=== PATIENT | female | born 1990 | race Caucasian/White ===

== ENCOUNTER → 2017-01-11 | Outpatient (CLI) | payer BC, OTHER ==
[~2017-01-11] MED LIST: ACET1TAB43 PO; FRS325T PO; HYDR-3714 PO; IBUP-1773 PO; PRNMV1T PO
--- NOTE | 2017-01-11 14:21 | Diagnostic Imaging Report ---
INDICATION: anatomical survey. TECHNIQUE: Multiple real-time grayscale images were obtained over the gravid uterus. COMPARISON: None FINDINGS: Single live intrauterine at 23 weeks 0 days by sonographic measurements. Grade 2 placenta is located anteriorly with no placenta previa. heart rate measures 149 beats per minute. The cervix measures 4.7 cm. presentation varied throughout the exam. Good visualization of the kidneys, bladder, stomach, brain, four-chamber heart, three-vessel cord and insertion, spine, and extremities. Biometrical measurements are as follows: Biparietal 5.62 cm, age 23 weeks 2 days. Head circumference 20.71 cm, age 22 weeks 6 days. Abdominal circumference 17.94 cm, age 22 weeks 6 days. Femur length 3.98 cm, age 22 weeks 6 days. Sonographic estimate age: 23 weeks 0 days. Sonographic estimated date of delivery: 05/10/2017. Estimated Weight: 539 gm (+/- 79 gm). LMP percentile: 57%. heart rate: 149 beats per minute. number: 1 of 1. IMPRESSION: 1. Single live intrauterine at 23 weeks 0 days by sonographic measurements. 2. Normal anatomical survey. Dictated by: Dictated on workstation # [id number]
== END ==
LOC: RAD 12:56
PROVIDERS: ATTEND Obstetrics & Gynecology
DX: Z36 Encounter for antenatal screening of mother (principal); Z3A.23 23 weeks gestation of pregnancy
CPT/HCPCS: 76805

== ENCOUNTER 2017-04-16 22:02 | Outpatient (CLI) | payer OTHER ==
[~2017-04-16] VITALS: Ht 152.4 cm; Wt 80.1 kg
[2017-04-16 22:25] VITALS: BP 130/80
[2017-04-16 22:36] LABS: BILIRUBIN,URINE NEGATIVE (NEGATIVE); KETONES,URINE NEGATIVE (NEGATIVE); LEUKOCYTE ESTERASE ,URINE NEGATIVE (NEGATIVE); NITRITE,URINE NEGATIVE (NEGATIVE); PH,URINE 7 (5-9); PROTEIN,URINE NEGATIVE (NEGATIVE); UROBILINOGEN,URINE NORMAL (NORMAL)
[2017-04-16 22:42] LABS: SQUAMOUS EPITHELIAL CELL,UR 0-2 /HPF
[2017-04-16] MEDS ORDERED: NS IV 500 ML 500 ML IV ONE (23:00)
[2017-04-16] MEDS ORDERED: D5 LR IV SOLUTION 1,000 ML IV SCH (23:00)
[2017-04-16 23:26] LABS: BASOPHILS % (AUTO) 0 % (0-10); EOSINOPHILS # (AUTO) 0.1 10^3/uL (0.0-0.3); EOSINOPHILS % (AUTO) 1 % (0-10); LYMPHOCYTES # (AUTO) 1.4 X 10^3 (1.0-4.0); LYMPHOCYTES % (AUTO) 15 % (12-44); MEAN CORPUSCULAR HEMOGLOBIN 30 PG (25-34); MEAN CORPUSCULAR HGB CONC 34 G/DL (32-36); MEAN CORPUSCULAR VOLUME 89 FL (80-99); MEAN PLATELET VOLUME 9.5 FL (7.4-10.4); MONOCYTES # (AUTO) 0.7 X 10^3 (0.0-1.0); MONOCYTES % (AUTO) 8 % (0-12); NEUTROPHILS # (AUTO) 6.9 X 10^3 (1.8-7.8); NEUTROPHILS % (AUTO) 76 % (42-75); PLATELET COUNT 194 10^3/uL (130-400); RED BLOOD COUNT 3.88 10^6/uL (4.35-5.85)
[2017-04-16 23:51] LABS: NEUTROPHILS % (MANUAL) 75 %
[2017-04-16 23:52] LABS: BAND NEUTROPHILS 3 %; LYMPHOCYTES % (MANUAL) 17 %
[2017-04-17] MEDS ORDERED: PREN-142 PO
[2017-04-17] MEDS ORDERED: INFLUENZA TRIvalent 2017-2018 0.5 ML/45 MCG SYR IM ONE (07:30)
--- NOTE | 2017-04-19 12:17 | Physician Query-Final Dx ---
TRINI POOLE 04/19/17 1217: Clinic Account Progress/Dx Physician Query: Please give diagnosis Date of Service Apr 16, 2017 at 22:02 SARAH CARLTON DO 04/20/17 1017: Clinic Account Progress/Dx DIAGNOSIS: Diagnosis 36 week IUP Uterine contractions TRINI POOLE Apr 19, 2017 12:17 SARAH CARLTON DO Apr 20, 2017 10:17
== END 2017-04-17 00:17 | disposition home or self-care (01) ==
LOC: WSo 22:02 → LDRP 22:02 → WSo 04-17 00:17
PROVIDERS: ATTEND Obstetrics & Gynecology
DX: O47.03 False labor before 37 completed weeks of gestation, third trimester (principal); Z3A.36 36 weeks gestation of pregnancy
CPT/HCPCS: 36415; 81000; 85007; 85027; 96360; 99213

== ENCOUNTER → 2018-12-26 | Outpatient (CLI) | payer OTHER ==
[~2018-12-26] MED LIST changes: +PREN-142 PO
--- NOTE | 2018-12-26 14:20 | Diagnostic Imaging Report ---
INDICATION: Size and dates. TECHNIQUE: Multiple Real-time grayscale images were obtained over the gravid uterus. COMPARISON: None. FINDINGS: There is a single living intrauterine in transverse presentation. The placenta is anterior with no previa. There is a normal volume of amniotic fluid. The anatomical survey is unremarkable. This includes a three-vessel cord and a four-chamber heart. The heart rates is 130 BPM and regular. TECHNIQUE: Biometrical measurements are as follows: Biparietal 4.67 cm, age 20 weeks 1 days. Head circumference 17.35 cm, age 20 weeks 0 days. Abdominal circumference 14.91 cm, age 20 weeks 2 days. Femur length 3.17 cm, age 19 weeks 6 days. Sonographic estimate age: 20 weeks 1 days. Sonographic estimated date of delivery: 05/14/2019. Estimated Weight: 327 gm (+/- 48 gm). LMP percentile: 55%. heart rate: 138 beats per minute. number: 1 of 1. IMPRESSION: Single living intrauterine with a sonographically estimated gestational age of 20 weeks 1 day and an estimated date of confinement of May 14, 2019. Dictated by: Dictated on workstation # [id number]
== END ==
LOC: RAD 11:51
PROVIDERS: ATTEND Obstetrics & Gynecology
DX: Z34.92 Encounter for supervision of normal pregnancy, unspecified, second trimester (principal); Z3A.20 20 weeks gestation of pregnancy
CPT/HCPCS: 76805

== ENCOUNTER 2019-05-12 08:00 | Inpatient (IN) | payer OTHER ==
[2019-05-12] VITALS (32 sets, daily range): BP systolic 105–138; BP diastolic 60–93
[~2019-05-12] VITALS: Ht 154.9 cm; Wt 78.8 kg
--- NOTE | 2019-05-12 07:58 | NUR ---
ESTHELA DAVIDSON presented to unit via AMBULATORY FROM HOME, accompanied by , FOR SCHEDULED INDUCTION. ESTHELA DAVIDSON weighed, gowned, voided, and to bed. EFHM and TOCO applied, VS taken. ESTHELA DAVIDSON oriented to bed controls, call light, TV, heat, and A/C controls.
[2019-05-12] MEDS ORDERED: D5 LR IV SOLUTION 1,000 ML IV ONE (08:14)
[2019-05-12] MEDS ORDERED: MINERAL OIL CONCENTRATE 99.9% 15 ML UDC TOP PRN (08:15)
[2019-05-12 08:43] LABS: BASOPHILS % (AUTO) 0 % (0-10); EOSINOPHILS # (AUTO) 0.1 10^3/uL (0.0-0.3); EOSINOPHILS % (AUTO) 1 % (0-10); HEMATOCRIT 36 % (35-52); HEMOGLOBIN 12.2 G/DL (11.5-16.0); LYMPHOCYTES # (AUTO) 2.1 X 10^3 (1.0-4.0); LYMPHOCYTES % (AUTO) 26 % (12-44); MEAN CORPUSCULAR HEMOGLOBIN 30 PG (25-34); MEAN CORPUSCULAR HGB CONC 34 G/DL (32-36); MEAN CORPUSCULAR VOLUME 89 FL (80-99); MONOCYTES # (AUTO) 0.7 X 10^3 (0.0-1.0); MONOCYTES % (AUTO) 9 % (0-12); NEUTROPHILS % (AUTO) 63 % (42-75); PLATELET COUNT 218 10^3/uL (130-400); RED CELL DISTRIBUTION WIDTH 13.1 % (10.0-14.5)
[2019-05-12] MEDS: D5 LR IV SOLUTION 1,000 ML IV SCH ×2 (08:44→13:46)
[2019-05-12] MEDS ORDERED: MISOPROSTOL 100 MCG (CYTOTEC) TAB PO NR ×2 (09:00→17:15)
[2019-05-12] MEDS ORDERED: FLU QUADRIvalent (5+ YOA) 2019-2020 (AFLURIA) 0.5 ML IM ONE (10:15)
--- NOTE | 2019-05-12 11:43 | NUR ---
DR VALDOVINOS CALLED WITH AN UPDATED PT REPORT. UC Q 3-4 MIN. PT STATES PAIN IS TOLERABLE, STILL ABLE TO TALK THROUGH UC, NOT REQUESTING PAIN MEDS. SVE NO CHANGE 3.5-4 CM . NO NEW ORDERS RECEIVED. DR WILL COME SEE PT AFTER CLINIC AND REEVALUATE PLAN OF CARE.
[2019-05-12] MEDS ORDERED: CATHETER FLUSH 10 ML SYR IV SCH ×2 (14:00→22:00)
--- NOTE | 2019-05-12 15:50 | NUR ---
DR VALDOVINOS AT BEDSIDE. RN UPDATES DR VALDOVINOS ON PT REPORT. SVE BY DR VALDOVINOS. WILL CONTINUE WITHOUT PITOCIN SINCE MAKING CERVICAL CHANGE. PT DOES NOT WANT PITOCIN IF AT ALL POSSIBLE DURING LABOR. PT RATES PAIN 7-8 WITH UC. BREATHING WELL. NOT REQUESTING PAIN MEDS, HANDLING LABOR VERY WELL AT THIS POINT. PT BACK ON BIRTHING BALL. WATER REFILLED, JELLO GIVEN, CALL LIGHT WITHIN REACH. REMAINS AT BEDSIDE.
--- NOTE | 2019-05-12 17:05 | NUR ---
THIS RN UPDATES DR VALDOVINOS ON PT PROGRESS. NO CERVICAL CHANGE. 6.[address] VALDOVINOS WANTS TO START PITOCIN. PT STATES IF SHE STARTS PITOCIN, SHE WILL WANT AN EPIDURAL. THEREFORE, DR VALDOVINOS WANTS TO GIVE A SECOND DOSE FO 50MCG CYTOTEC PO INSTEAD. RN WILL PLACE ORDER. PT IS AWARE OF NEW PLAN OF CARE AND IS STILL WANTING TO TRY TO LABOR WITHOUT AND EPIDURAL AT THIS TIME LONG PITOCIN IS NOT STARTED.
--- NOTE | 2019-05-12 18:09 | NUR ---
DR VALDOVINOS GIVEN UPDATED REPORT BY THIS RN. SVE 7.5CM, REOCCURRING VARIABLES WITH EACH UC WHICH DECEL TO 100S REGAURDLESS OF INTERVENTIONS (O2, BOLUS, POSITION CHANGES). UC 2-3.5 MIN APART. PT RATING PAIN 10, BREATHING WELL, HAS GREAT CONTROL. PT ASKING ABOUT PAIN MEDS. ORDER RECEIVED FOR 1MG STADOL.
[2019-05-12] MEDS ORDERED: BUTORPHANOL INJ 2 MG/ML (STADOL) VIAL ONE (18:25)
[2019-05-12] MEDS ORDERED: BUTORPHANOL INJ 2 MG/ML (STADOL) VIAL IV ONE (18:30)
--- NOTE | 2019-05-12 18:34 | NUR ---
DR VALDOVINOS UPDATED ON STATUS. NO CERVICAL CHANGE. FEELING PRESSURE WITH UC.
--- NOTE | 2019-05-12 19:00 | NUR ---
DR VALDOVINOS GIVEN UPDATE PT STATUS. SVE /-1, POSSIBLY ASYNCLITIC. PT FEELING PRESSURE. HAVE BEEN TURNING SIDE TO SIDE WITH PEANUT BALL. DR VALDOVINOS STATES SHE WILL HEAD THAT WAY IN A LITTLE BIT.
--- NOTE | 2019-05-12 19:05 | NUR ---
DR VALDOVINOS CALLED AGAIN BY AT 190 RN TO COME NOW-PT FEELING PUSHY NOW. DR VALDOVINOS STATES SHES ALREADY IN CAR HEADED THIS WAY. THIS RN REMAINS AT BEDSIDE. AT 191 PT STATES SHE CANNOT HOLD BACK FROM PUSHING. EMERGENCY CALL LIGHT PULLED FOR ADDITIONAL ASSISTANCE. RAMONA BURDEN MIKAELA, TAYLOR RN AT BEDSIDE. THIS RN SUPPORTS PERINEUM WHILE PT INVOLUNTARILY PUSHES, AT 191. SPONTANEOUS VAGINAL DELIVERY AT 191. VIABLE FEMALE WAS PLACED ON MOTHERS ABDOMEN AND SHOWS VIGOROUS CRY. DRIED OFF WITH TOWELS, STIMULATED, AND ASSESSED BY KARON SHELDON AT BEDSIDE. CORD CLAMPED AND CUT AT 191. DR VALDOVINOS ARRIVES AT 191. PLACENTA DELIVERED BY DR VALDOVINOS AT 191. RAMONA SHELDON ASSUMES CARE FOR MOTHER.
[2019-05-12] MEDS ORDERED: OXYTOCIN/NORMAL SALINE 500 ML IV ONE (19:10)
[2019-05-12] MEDS ORDERED: OXYTOCIN/NORMAL SALINE 500 ML IV SCH (19:29)
--- NOTE | 2019-05-12 19:29 | OB Labor & Delivery Record ---
Vag Delivery Note Vag Delivery Note Date of Delivery: 05/12/19 Preoperative Diagnosis: Brigida Redd is a 29 /Para 4/ 3, Gestational Age (wks)39with social induction Postoperative Diagnosis: Same Surgeon: HAYDEN VALDOVINOS Anesthesia: none Delivery Type: spontaneous vaginal Findings: Viable female infant, apgars [ending, weight pending Lacerations: none Intact placenta with 3 vessel cord. No nuchal cord, body cord or shoulder dystocia Estimated Blood Loss: 300 ml Complications: None Condition: Stable Description of Procedure: The patient is a 29 year old female who presented for social induction. She was admitted and informed consent was obtained. Her labor course was remarkable for Arom and misoprostol. i was called at 1906 at 8 cm and started for the hospital but was stopped by the train. I arrived at 1712 and she was delivering. the RN delivered in the bed as I arrived in the room. The infant's head was delivered atraumatically. The shoulders and remainder of the infant's body were then delivered without difficulty. Upon delivery, the head was held below the level of the perineum and the mouth and nares were bulb suctioned. The cord was doubly clamped and cut and the was handed off to the pediatric staff. An intact placenta with 3-vessel cord delivered via Flora and there was found to be minimal bleeding.~ Vigorous fundal massage was performed and the fundus was found to be firm. IV oxytocin was given. Examination of the vagina and perineum revealed no laceration. Following the delivery, sponge, instrument and needle counts were correct. Mom and baby were both in stable condition in the labor suite. Vitals - Labs Vital Signs - I&O Vital Signs Date Time Temp Pulse Resp B/P (MAP) Pulse Ox O2 Delivery O2 Flow Rate FiO2 05/12/19 16:30 82 123/82 (96) Room Air 05/12/19 16:15 87 118/73 (88) Room Air 05/12/19 16:00 36.6 87 121/86 (98) Room Air 05/12/19 15:45 Room Air 05/12/19 15:30 96 111/78 (89) Room Air 05/12/19 15:15 93 110/74 (86) Room Air 05/12/19 15:00 36.8 Room Air 05/12/19 14:45 Room Air 05/12/19 14:30 98 16 132/83 (99) Room Air 05/12/19 14:15 Room Air 05/12/19 14:00 36.6 86 126/83 (97) Room Air 05/12/19 13:30 75 105/60 (75) Room Air 05/12/19 13:00 80 124/83 (97) Room Air 05/12/19 12:30 77 16 129/88 (102) Room Air 05/12/19 12:00 88 122/78 (93) Room Air 05/12/19 11:30 Room Air 05/12/19 11:00 36.8 77 117/79 (92) Room Air 05/12/19 10:30 80 16 117/70 (86) Room Air 05/12/19 10:00 36.5 81 120/78 (92) Room Air 05/12/19 08:20 36.5 103 16 97 Room Air 05/12/19 08:20 36.5 103 16 125/82 (96) 97 Room Air Labs Laboratory Tests 05/12/19 08:30: White Blood Count 8.0, Red Blood Count 4.08L, Hemoglobin 12.2, Hematocrit 36, Mean Corpuscular Volume 89, Mean Corpuscular Hemoglobin 30, Mean Corpuscular Hemoglobin Concent 34, Red Cell Distribution Width 13.1, Platelet Count 218, Mean Platelet Volume 10.0, Neutrophils (%) (Auto) 63, Lymphocytes (%) (Auto) 26, Monocytes (%) (Auto) 9, Eosinophils (%) (Auto) 1, Basophils (%) (Auto) 0, Neutrophils # (Auto) 5.0, Lymphocytes # (Auto) 2.1, Monocytes # (Auto) 0.7, Eosinophils # (Auto) 0.1, Basophils # (Auto) 0.0 HAYDEN VALDOVINOS DO May 12, 2019 19:29 POS
[2019-05-12] MEDS ORDERED: MEASLES,MUMPS,RUBELLA 1 EA INJ SQ ONE (19:30)
[2019-05-12] MEDS ORDERED: BENZOCAINE/MENTHOL (DERMOPLAST) 56 ML CAN TP PRN (19:30)
[2019-05-12] MEDS ORDERED: TETANUS,DIPTH,PERTUSS P/F (BOOSTRIX) 0.5 ML VIAL IM ONE (19:30)
[2019-05-12] MEDS ORDERED: WITCH HAZEL(TUCKS) 40 EA JAR TOP PRN (19:30)
--- NOTE | 2019-05-12 19:30 | NUR ---
1930: Pt. cleaned up. Clean chux placed under pt. Fundus massaged. Fundus at umbilicus and firm. Minimal bleeding. No clots noted at this time. 1944: Fundus massaged. Fundus one above umbilicus and firm. Minimal bleeding. No clots. 1999: Fundus massaged. Fundus one above umbilicus and firm. Minimal bleeding. No clots. 2014: Fundus massaged. Fundus one above umbilicus and firm. Minimal bleeding. No clots. 2029: Fundus massaged. Fundus one above umbilicus and firm. Minimal bleeding. No clots. Pt. states that she needs to use the restroom. Nurse out to get pad, gown, and underwear at this time. 2039: Pt. up to bathroom with nurse assist. Voided large amount of clear, straw colored urine. Pericare provided. Pad and underwear put on. Clean gown put on. Pt. then transferred to room via wheelchair. Pt. settled in new room. Fundus continues to be firm. Fundus at umbilicus with minimal bleeding noted.
[2019-05-12] MEDS ORDERED: IBUPROFEN 800 MG (MOTRIN) TAB PO ONE (20:09)
[2019-05-12] MEDS ORDERED: IBUPROFEN 600 MG (MOTRIN) TAB PO ONE (20:10)
[2019-05-12] MEDS: IBUPROFEN 600 MG (MOTRIN) TAB PO SCH (20:13)
[2019-05-12] MEDS: ACETAMINOPHEN 500 MG TAB (TYLENOL) PO SCH (21:41)
[2019-05-12] MEDS: DOCUSATE SODIUM 100 MG (COLACE) CAP PO SCH (21:42)
[2019-05-13 02:09] VITALS: BP 97/76
[2019-05-13] MEDS: IBUPROFEN 600 MG (MOTRIN) TAB PO SCH ×3 (02:09→23:48)
[2019-05-13 06:16] VITALS: BP 126/81
[2019-05-13] MEDS: ACETAMINOPHEN 500 MG TAB (TYLENOL) PO SCH ×3 (06:16→20:53)
[2019-05-13 06:36] LABS: BASOPHILS % (AUTO) 0 % (0-10); EOSINOPHILS # (AUTO) 0.1 10^3/uL (0.0-0.3); EOSINOPHILS % (AUTO) 1 % (0-10); HEMATOCRIT 37 % (35-52); HEMOGLOBIN 12.4 G/DL (11.5-16.0); LYMPHOCYTES # (AUTO) 2.2 X 10^3 (1.0-4.0); LYMPHOCYTES % (AUTO) 18 % (12-44); MEAN CORPUSCULAR HGB CONC 34 G/DL (32-36); MEAN CORPUSCULAR VOLUME 90 FL (80-99); MEAN PLATELET VOLUME 9.9 FL (7.4-10.4); MONOCYTES # (AUTO) 1.2 X 10^3 (0.0-1.0); MONOCYTES % (AUTO) 10 % (0-12); NEUTROPHILS # (AUTO) 8.4 X 10^3 (1.8-7.8); NEUTROPHILS % (AUTO) 71 % (42-75); PLATELET COUNT 207 10^3/uL (130-400); RED CELL DISTRIBUTION WIDTH 13.4 % (10.0-14.5); WHITE BLOOD COUNT 11.8 10^3/uL (4.3-11.0)
[2019-05-13 06:39] LABS: MEAN CORPUSCULAR HEMOGLOBIN 30 PG (25-34)
--- NOTE | 2019-05-13 09:02 | Postpartum Progress Note ---
Note Note Day # 1 s/p Subjective: Patient is without complaints. Ambulating, voiding. Tolerating a regular diet without nausea or vomiting. Normal lochia. Pain is well controlled with oral pain medications. breast feeding. Objective: Laboratory Tests Test 05/13/19 06:00 Range/Units White Blood Count 11.8 H 4.3-11.0 10^3/uL Red Blood Count 4.07 L 4.35-5.85 10^6/uL Hemoglobin 12.4 11.5-16.0 G/DL Hematocrit 37 35-52 % Mean Corpuscular Volume 90 80-99 FL Mean Corpuscular Hemoglobin 30 25-34 PG Mean Corpuscular Hemoglobin Concent 34 32-36 G/DL Red Cell Distribution Width 13.4 10.0-14.5 % Platelet Count 207 130-400 10^3/uL Mean Platelet Volume 9.9 7.4-10.4 FL Neutrophils (%) (Auto) 71 42-75 % Lymphocytes (%) (Auto) 18 12-44 % Monocytes (%) (Auto) 10 0-12 % Eosinophils (%) (Auto) 1 0-10 % Basophils (%) (Auto) 0 0-10 % Neutrophils # (Auto) 8.4 H 1.8-7.8 X 10^3 Lymphocytes # (Auto) 2.2 1.0-4.0 X 10^3 Monocytes # (Auto) 1.2 H 0.0-1.0 X 10^3 Eosinophils # (Auto) 0.1 0.0-0.3 10^3/uL Basophils # (Auto) 0.0 0.0-0.1 10^3/uL 05/12/19 05/13/19 05/13/19 21:20 02:09 06:16 Temp 37.3 36.9 36.6 Pulse 87 76 64 Resp 18 18 18 B/P (MAP) 109/72 (84) 97/76 (83) 126/81 (96) Pulse Ox 97 98 O2 Delivery Room Air Room Air Room Air 05/12/19 23:59 Intake Total 2400 ml Balance 2400 ml Physical Exam: General - Alert and oriented, no apparent distress Abdomen - Soft, appropriately tender to palpation, non-distended, fundus firm at umbilicus Extremities - no edema, negative Mary's bilaterally [] Assessment: [1. post- day # 1, status post vaginal delivery. Recovering well, hemodynamically stable Plan: Routine care. Encourage breast feeding. Encourage ambulation. Ferrous sulfate supplementation. Plan for discharge [] Vitals - Labs Vital Signs - I&O Vital Signs Date Time Temp Pulse Resp B/P (MAP) Pulse Ox O2 Delivery O2 Flow Rate FiO2 05/13/19 06:16 36.6 64 18 126/81 (96) 98 Room Air 05/13/19 02:09 36.9 76 18 97/76 (83) 97 Room Air 05/12/19 21:20 37.3 87 18 109/72 (84) Room Air 05/12/19 20:45 76 125/84 (98) Room Air 05/12/19 20:30 71 126/84 (98) Room Air 05/12/19 20:15 36.4 85 16 118/81 (93) Room Air 05/12/19 20:00 82 125/79 (94) Room Air 05/12/19 19:45 36.6 82 125/79 (94) Room Air 05/12/19 19:30 78 134/92 (106) Room Air 05/12/19 19:15 74 138/93 (108) Room Air 05/12/19 19:00 74 20 138/93 (108) Non Rebreather 10.00 05/12/19 18:45 Non Rebreather 10.00 05/12/19 18:30 82 126/72 (90) Non Rebreather 10.00 05/12/19 18:15 76 118/64 (82) Non Rebreather 10.00 05/12/19 18:00 81 138/82 (100) Room Air 05/12/19 17:45 89 125/90 (102) Room Air 05/12/19 17:30 83 18 114/82 (93) Room Air 05/12/19 17:15 81 112/76 (88) Room Air 05/12/19 17:00 100 118/79 (92) Room Air 05/12/19 16:45 36.3 84 123/84 (97) Room Air 05/12/19 16:30 82 123/82 (96) Room Air 05/12/19 16:15 87 118/73 (88) Room Air 05/12/19 16:00 36.6 87 121/86 (98) Room Air 05/12/19 15:45 Room Air 05/12/19 15:30 96 111/78 (89) Room Air 05/12/19 15:15 93 110/74 (86) Room Air 05/12/19 15:00 36.8 Room Air 05/12/19 14:45 Room Air 05/12/19 14:30 98 16 132/83 (99) Room Air 05/12/19 14:15 Room Air 05/12/19 14:00 36.6 86 126/83 (97) Room Air 05/12/19 13:30 75 105/60 (75) Room Air 05/12/19 13:00 80 124/83 (97) Room Air 05/12/19 12:30 77 16 129/88 (102) Room Air 05/12/19 12:00 88 122/78 (93) Room Air 05/12/19 11:30 Room Air 05/12/19 11:00 36.8 77 117/79 (92) Room Air 05/12/19 10:30 80 16 117/70 (86) Room Air 05/12/19 10:00 36.5 81 120/78 (92) Room Air I & O 05/13/19 06:59 Intake Total 2400 ml Balance 2400 ml Labs Laboratory Tests 05/13/19 06:00: White Blood Count 11.8H, Red Blood Count 4.07L, Hemoglobin 12.4, Hematocrit 37, Mean Corpuscular Volume 90, Mean Corpuscular Hemoglobin 30, Mean Corpuscular Hemoglobin Concent 34, Red Cell Distribution Width 13.4, Platelet Count 207, Mean Platelet Volume 9.9, Neutrophils (%) (Auto) 71, Lymphocytes (%) (Auto) 18, Monocytes (%) (Auto) 10, Eosinophils (%) (Auto) 1, Basophils (%) (Auto) 0, Neutrophils # (Auto) 8.4H, Lymphocytes # (Auto) 2.2, Monocytes # (Auto) 1.2H, Eosinophils # (Auto) 0.1, Basophils # (Auto) 0.0 HAYDEN VALDOVINOS DO May 13, 2019 09:02 POS
[2019-05-13] MEDS ORDERED: IBUP-1773 PO (09:03)
[2019-05-13] MEDS ORDERED: ACET-77 PO (09:03)
--- NOTE | 2019-05-13 09:04 | Discharge Inst-Women's Service ---
Discharge Inst-Women's Serv Depart Medication/Instructions New, Converted or Re-Newed RX: RX on Chart Final Diagnosis induction vaginal delivery Problems Reviewed?: Yes Consults/Follow Up Additional Follow Up: Yes (6 week pp exam) Activity Activity: Activity as Tolerated Driving Instructions: You May Drive NO SMOKING: NO SMOKING Nothing Inside Vagina: No Douching, No [place], No Tampons Diet Discharge Diet: No Restrictions Symptoms to Report to : Bleeding Excessive, Pain Increased, Fever Over 101 Degrees F, Vaginal Discharge Foul For Any Problems or Questions: Contact Your Physician Skin/Wound Care Infection Signs and Symptoms: Increased Drainage HAYDEN VALDOVINOS DO May 13, 2019 09:04 POS
[2019-05-13 09:37] VITALS: BP 122/77
[2019-05-13] MEDS: DOCUSATE SODIUM 100 MG (COLACE) CAP PO SCH ×2 (09:43→20:53)
[2019-05-13] MEDS: PRENATAL VITAMIN 1 EA TAB PO SCH (09:43)
[2019-05-13] MEDS: FERROUS SULF 325 MG (IRON) TAB PO SCH (09:43)
[2019-05-13 12:39] VITALS: BP 116/77
--- NOTE | 2019-05-13 18:00 | NUR ---
Pt ambulated in hallway today. Currently denies pain.
[2019-05-13 20:00] VITALS: BP 117/82
--- NOTE | 2019-05-13 21:10 | NUR ---
assessment completed. pt denies any needs at this time. will continue to monitor.
[2019-05-14 04:07] VITALS: BP 112/71
[2019-05-14] MEDS: ACETAMINOPHEN 500 MG TAB (TYLENOL) PO SCH ×2 (04:46→11:56)
[2019-05-14] MEDS: IBUPROFEN 600 MG (MOTRIN) TAB PO SCH ×2 (06:37→11:56)
--- NOTE | 2019-05-14 08:50 | NUR ---
Dr dover to see patient. new orders for discharge received.
--- NOTE | 2019-05-14 08:50 | Progress Note ---
Standard Progress Note Progress Notes/Assess & Plan Date Seen by a Provider: May 14, 2019 Time Seen by a Provider: 08:49 Progress/Assessment & Plan This patient is without complaint. She is ambulating, voiding, tolerating oral intake well has good pain control. Patient is requesting discharge home Vital Signs 05/13/19 05/13/19 05/14/19 06:16 12:39 04:07 Temp 36.7 Pulse 55 Resp 18 B/P (MAP) 112/71 (85) Pulse Ox 98 O2 Delivery Room Air O2 Flow Rate 10.00 10.00 Vital signs are stable. Patient is afebrile. Fundus is firm below the umbilicus nontender. Extremities show no clubbing or cyanosis. There is no Homans sign. There is some pretibial pitting edema that is normal. Assessment and plan day number 2 status post term spontaneous vaginal delivery doing well. Plan is for routine convalescence care with discharge home today MAIRA MOORE MD May 14, 2019 08:50 POS
[2019-05-14 10:13] VITALS: BP 130/97
[2019-05-14] MEDS: FERROUS SULF 325 MG (IRON) TAB PO SCH (10:15)
[2019-05-14] MEDS: PRENATAL VITAMIN 1 EA TAB PO SCH (10:15)
[2019-05-14] MEDS: DOCUSATE SODIUM 100 MG (COLACE) CAP PO SCH (10:15)
--- NOTE | 2019-05-14 11:50 | NUR ---
Discharge instructions explained, signed and copy to patient. pt verbalized understanding of instructions and denied questions. prescriptions given.
--- NOTE | 2019-05-14 13:55 | NUR ---
Discharged to home. Ambulates self downstairs accompanied by staff and . To private vehicle with belongings in hand.
== END 2019-05-14 13:55 | disposition home or self-care (01) | DRG 807 ==
LOC: LDRP 08:02
PROVIDERS: ADMIT Obstetrics & Gynecology; ATTEND Obstetrics & Gynecology
PROC: 10E0XZZ Delivery of Products of Conception, External Approach (ICD-10-PCS; principal; 2019-05-12)
DX: O80 Encounter for full-term uncomplicated delivery (principal); Z37.0 Single live birth; Z23 Encounter for immunization; Z3A.39 39 weeks gestation of pregnancy
CPT/HCPCS: 36415; 85025; 86850; 86900; 86901